=== PATIENT | male | born 1990 | race American Indian/Alaskan Native ===

== ENCOUNTER 2017-04-07 11:33 | Emergency (ER) | payer OTHER ==
[2017-04-07] MEDS ORDERED: TYLENOL PO ONE (12:23)
[2017-04-07] MEDS ORDERED: TORADOL IM ONE (16:50)
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
[2017-04-07] MEDS ORDERED: BOOSTRIX IM ONE (19:05)
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
[2017-04-07 21:03] VITALS: BP 118/62
== END 2017-04-07 20:30 | disposition home or self-care (01) ==
LOC: ED 11:33
DX: S20.212A Contusion of left front wall of thorax, initial encounter (principal); M25.512 Pain in left shoulder; V49.49XA Driver injured in collision with other motor vehicles in traffic accident, initial encounter; Y93.9 Activity, unspecified; Y92.9 Unspecified place or not applicable; Y99.9 Unspecified external cause status
CPT/HCPCS: 71101; 73030; 90471; 90715; 96372; 99284; J1885